=== PATIENT | female | born 1940 | race Caucasian/White ===

== ENCOUNTER 2024-09-29 13:35 | Outpatient (CLI) | payer MEDICARE, OTHER, SELFPAY ==
[2024-09-29 15:32] LABS: Basophils # 0.1 K/mm3 (0-0.2); Basophils % 1.1 % (0.1-2.0); Eosinophils # 1.3 K/mm3 (0.0-0.4); Eosinophils % 12.3 % (0.1-12.0); Hematocrit 36.5 % (37.0-47.0); Hemoglobin 11.6 g/dL (12.2-16.2); Lymphocytes # 2.4 K/mm3 (0.7-4.5); Lymphocytes % 22.9 % (10-50); Mean Corpuscular HGB Conc 31.8 g/dL (31.8-35.4); Mean Corpuscular Hemoglobin 29.6 pg (27.0-31.2); Mean Corpuscular Volume 93.1 fl (81-99); Mean Platelet Volume 11.1 fl (7.4-10.4); Monocytes # 1.2 K/mm3 (0.1-1.0); Monocytes % 11.3 % (1.7-9.3); Neutrophils # 5.4 K/mm3 (1.8-7.8); Platelet Count 317 K/mm3 (142-424); Red Blood Count 3.92 M/mm3 (4.20-5.40); Red Cell Distribution Width 13.6 % (11.5-17.5); White Blood Count 10.4 K/mm3 (4.8-10.8)
[2024-09-29 15:42] LABS: Chloride 106 mmol/L (98-107); Sodium 140 mmol/L (136-145)
[2024-09-29 15:45] LABS: Alanine Aminotransferase 15 U/L (12-78); Aspartate Amino Transferase 23 U/L (14-36); Bilirubin,Total 0.3 mg/dl (0.2-1.3); Blood Urea Nitrogen 18 mg/dl (7-17); Carbon Dioxide 27 mmol/L (22.0-30.0); Estimated Glomerular Filt Rate 36 ml/min (>60); GFR (African American) 43 ML/MIN (>60)
[2024-09-29 15:46] LABS: Alkaline Phosphatase 80 U/L (38-126); Calcium 10.2 mg/dl (8.4-10.2); Glucose 103 mg/dl (74-100)
[2024-09-29 15:52] LABS: Albumin Level 4.3 g/dl (3.5-5.0); Albumin/Globulin Ratio 1.6 (1.1-1.8); C-Reactive Protein 12.5 mg/L (0-4); Globulin 2.7 g/dL (1.3-3.2)
[2024-09-29 16:03] LABS: Erythrocyte Sedimentation Rate 15 mm/hr (0-30)
[2024-10-01 06:14] LABS: Calprotectin, Fecal 1200 ug/g (0-120)
== END 2024-09-29 23:59 | disposition home or self-care (01) ==
LOC: LAB 13:39
PROVIDERS: PCP Internal Medicine; Visit Provider Internal Medicine Gastroenterology
DX: K51.90 Ulcerative colitis, unspecified, without complications (principal); K74.69 Other cirrhosis of liver; B19.20 Unspecified viral hepatitis C without hepatic coma
CPT/HCPCS: 36415; 80053; 83993; 85025; 85651; 86140

== ENCOUNTER 2024-12-08 15:02 | Outpatient (CLI) | payer MEDICARE, OTHER, SELFPAY ==
--- NOTE | 2024-12-08 15:05 | XR_ITS ---
FINAL REPORT TECHNIQUE: Chest PA & Lateral CLINICAL HISTORY: Dyspnea and fever..soa x 3 months COMPARISON: None FINDINGS: 2 views of the chest were performed. The heart size is normal. The mediastinum is within normal limits. There is no acute cardiopulmonary process. Chronic scarring is noted at the right lung base. There are no pleural effusions. There is no pneumothorax. The bony thorax appears intact. IMPRESSION: No acute cardiopulmonary process. Reviewed, Interpreted and Dictated by Richard Pablo MD Transcribed by Stephenie Mancia Authenticated and [facility]
[2024-12-08 15:26] LABS: Microscopic, Urine URINE MICROSCOPIC (MICROSCOPIC)
[2024-12-08 15:43] LABS: Blood, Urine TRACE-I (Negative); Color,Urine YELLOW (Yellow); Glucose,Urine (UA) Negative (Negative); Ketones,Urine Negative (Negative); Leukocyte Esterase,Urine TRACE (Negative); Nitrate,Urine Negative (Negative); PH,Urine 5.5 (5.0-8.5); Protein,Urine TRACE (Negative); Specific Gravity, Urine >= 1.030 (1.005-1.030); Urobilinogen,Urine 0.2 EU/dl (0.2)
[2024-12-08 15:51] LABS: Appearance,Urine Slightly Cloudy (Clear); Bilirubin,Urine 1+ (Negative)
[2024-12-08 16:00] LABS: Basophils # 0.1 K/mm3 (0-0.2); Eosinophils # 1.7 Kmm3 (0.0-0.4); Eosinophils % 15.9 % (0.1-12.0); Hematocrit 36.1 % (37.0-47.0); Hemoglobin 11.5 g/dL (12.2-16.2); Immature Granulocytes # 0.06 10^3uL; Immature Granulocytes % 0.6 %; Lymphocytes # 1.2 K/mm3 (0.7-4.5); Lymphocytes % 11.2 % (10-50); Mean Corpuscular HGB Conc 31.9 g/dL (31.8-35.4); Mean Corpuscular Hemoglobin 29.7 pg (27.0-31.2); Mean Corpuscular Volume 93.3 fl (81-99); Mean Platelet Volume 9.5 fl (7.4-10.4); Monocytes # 1.3 K/mm3 (0.1-1.0); Monocytes % 11.9 % (1.7-9.3); Neutrophils # 6.4 K/mm3 (1.8-7.8); Neutrophils % 59.4 % (37.0-80.0); Nucleated Red Blood Cells # 0 10^3/uL; Nucleated Red Blood Cells % 0 %; Platelet Count 567 K/mm3 (142-424); Red Blood Count 3.87 M/mm3 (4.20-5.40); Red Cell Distribution Width 14.5 % (11.5-17.5); Red Cell Distribution Width-SD 49.7 fL; White Blood Count 10.8 K/mm3 (4.8-10.8)
[2024-12-08 16:20] LABS: RBC,Urine Occasional #/hpf (0-3)
[2024-12-08 16:21] LABS: Bacteria,Urine 2+ /lpf; Hyaline Casts,Urine OCC #/lpf (0)
[2024-12-08 17:03] LABS: Albumin Level 3.8 g/dl (3.5-5.0); Chloride 108 mmol/L (98-107)
[2024-12-08 17:04] LABS: Potassium 4.6 mmoL/L (3.5-5.1); Sodium 136 mmol/L (136-145)
[2024-12-08 17:06] LABS: Alanine Aminotransferase 11 U/L (12-78); Blood Urea Nitrogen 21 mg/dl (7-17); Estimated Glomerular Filt Rate 31 ml/min (>60); GFR (African American) 37 ML/MIN (>60)
[2024-12-08 17:07] LABS: Albumin/Globulin Ratio 1.3 (1.1-1.8); Alkaline Phosphatase 80 U/L (38-126); Anion Gap 9.6 mEq/L (5-15); Aspartate Amino Transferase 20 U/L (14-36); Bilirubin,Total 0.3 mg/dl (0.2-1.3); Calcium 8.7 mg/dl (8.4-10.2); Carbon Dioxide 23 mmol/L (22.0-30.0); Glucose 115 mg/dl (74-100); Total Protein,Serum 6.8 g/dl (6.3-8.2)
== END 2024-12-08 23:59 | disposition home or self-care (01) ==
LOC: LAB 15:03
PROVIDERS: PCP Internal Medicine; Visit Provider Internal Medicine Gastroenterology
DX: R06.00 Dyspnea, unspecified (principal); R50.9 Fever, unspecified; K51.90 Ulcerative colitis, unspecified, without complications; K52.9 Noninfective gastroenteritis and colitis, unspecified; K74.69 Other cirrhosis of liver; B19.20 Unspecified viral hepatitis C without hepatic coma
CPT/HCPCS: 36415; 71046; 80053; 81001; 85025; 87086